=== PATIENT | female | born 1950 | race Caucasian/White ===

== ENCOUNTER 2016-07-12 06:15 | Day surgery (SDC) | payer OTHER, BC ==
[2016-07-11 11:20] VITALS: BMI 32.5
[2016-07-12 18:57] VITALS: BP 144/77; PULSE 74; TEMP 97.9
--- NOTE | 2016-07-13 12:03 | OP ---
DATE OF OPERATION: 07/12/2016 SURGEON: Kamryn Rubio MD STOCK CLERK: None. ANESTHESIA: Local. ANESTHESIOLOGIST: None. PREOPERATIVE DIAGNOSIS: Right ring finger trigger finger and right palm mass. POSTOPERATIVE DIAGNOSIS: Right ring finger trigger finger and right palm mass. PROCEDURE PERFORMED: 1. Right ring finger A1 malorie release. 2. Right ring finger deep palm mass. INDICATION FOR PROCEDURE: Patient is known from consultation to have a right ring finger trigger finger and a right palm mass. Risks, benefits, and alternatives were discussed with the patient. Consent was obtained to proceed with the procedure. CONSENT: Prior to the procedure, the patient had ample time to ask all her questions, have these questions answered to her satisfaction. Risks discussed included but were not limited to infection, bleeding, anesthesia risks, risk of poor scarring, risk of trigger finger recurrence or incomplete release, risk of mass recurrence or need for reoperation for unexpected pathology, risk of hand stiffness requiring therapy or further surgery, and risk of damage to adjacent nerves, vessels, tendons, and other structures. Understanding these risks, the patient gave consent to proceed with the procedure. DESCRIPTION OF PROCEDURE: The patient was given a local field block in the preoperative holding area with 4 mL of 1% lidocaine with epinephrine. After adequate time for hemostatic and anesthetic effects had been allowed to elapse, the patient was taken to the operating room, placed supine on the operating room table by the operating room team. A well-padded upper arm tourniquet was placed and the hand was then prepped and draped in a standard sterile fashion. The limb was exsanguinated from distal to proximal with an Esmarch bandage, then after a standard operative timeout in which the patient's input was included, the tourniquet was inflated to 250 mmHg. Attention was first turned to the mass excision. An incision was made on the palm and spreading dissection performed until the mass was encountered. The mass was noted to be firm and white with smooth borders, and delicate dissection was performed around it, protecting digital nerves and vessels to either side. Once the mass was fully isolated, it was removed in 1 piece and sent to pathology as right palm mass. It measured less than 1 cm in longest dimension. Attention was then turned to the A1 malorie release. Incision was elongated and dissection performed down to the A1 malorie. The A1 malorie was isolated and incised in its midline with a 15-blade and then tenotomy scissors used to extend it further. The patient was challenged to trigger and was unable to recreate her triggering. There was seen to be a significant amount of tendon fraying. Some frayed tendon was resected to increase glide. Tendons were delivered into the wound, and smooth pull-through was seen. These were placed, and the patient was again asked to trigger and was unable to recreate her triggering. The wound was then closed with 4-0 nylon sutures in horizontal mattress fashion. Tourniquet was then deflated at 15 minutes. Sterile dressings were then applied. At the end of the case the counts were correct x2. The patient tolerated the procedure well and was taken to postanesthesia care unit in stable condition. DISPOSITION: To recovery. COMPLICATIONS: None. IMPLANTS: None. SPECIMENS: Right palm mass x1. Postoperative examination showed the patient resting comfortably in the postanesthesia care unit. She was able to flex and extend her finger fully without problem. Effects of the digital block were in place. Operative findings and discharge instructions were reinforced. KAMRYN RUBIO M.D. [id number]
--- NOTE | 2016-07-13 13:34 | PATH ---
Surgical Pathology Report Patient Name: LILIAN BERRY [facility]. Rec. #: [id number] /Age/Gender: 1950 (Age: 66) / F Account: [id number] Location: [facility] Taken: 07/12/2016 Received: 07/12/2016 Reported: 07/13/2016 Physicians: Sal Costello M.D. Specimen(s) Received MASS RIGHT PALM Clinical History Mass right palm Final Diagnosis SOFT TISSUE, RIGHT PALM, MUST, EXCISION: BENIGN TENOSYNOVIAL FIBROCONNECTIVE TISSUE WITH MYXOID DEGENERATION MOST CONSISTENT WITH GANGLION CYST. NO MALIGNANCY IDENTIFIED. Electronically Signed Eric Martinez M.D. Gross Description Received in formalin labeled "mass right palm" is a 0.7 x 0.5 x 0.5 cm escamilla irregular fragment of soft tissue, grossly suggestive of a cyst. The specimen is bisected and entirely submitted in one cassette. /07/12/201607/12/2016
== END 2016-07-12 09:50 | disposition home or self-care (01) ==
LOC: FASU 06:15
PROVIDERS: ATTEND Plastic Surgery
PROC: 0JBJ0ZZ Excision of Right Hand Subcutaneous Tissue and Fascia, Open Approach (ICD-10-PCS; 2016-07-12)
PROC: 0LN70ZZ Release Right Hand Tendon, Open Approach (ICD-10-PCS; principal; 2016-07-12 09:00)
DX: M65.341 Trigger finger, right ring finger (principal); R22.31 Localized swelling, mass and lump, right upper limb
CPT/HCPCS: 88304-TC